=== PATIENT | male | born 1960 | race African-American/Black ===

== ENCOUNTER 2016-12-01 14:24 | Emergency (ER) | payer MEDICAID ==
[~2016-12-01] VITALS: Ht 182.9 cm; Wt 91.0 kg
[~2016-12-01 14:24] MED LIST: DICL75TA5 PO; GABA-531 PO; TRAM50TA3 PO
[2016-12-01] MEDS ORDERED: NORCO (14:45)
[2016-12-01 14:46] VITALS: BP 139/105
[2016-12-01] MEDS ORDERED: TETANUS, DIPHTHERIA, PERTUSSIS VAC/PF 0.5ML (>7YR OLD) IM ONE (17:15)
[2016-12-01] MEDS ORDERED: BACITRACIN ZINC OINT UDPKT TOP ONE (17:15)
[2016-12-01] MEDS ORDERED: KETOROLAC 60MG/2ML VIAL IM ONE (17:30)
== END 2016-12-01 17:53 | disposition home or self-care (01) ==
LOC: ER 14:24
DX: S61.011A Laceration without foreign body of right thumb without damage to nail, initial encounter (principal); F17.200 Nicotine dependence, unspecified, uncomplicated; Z98.890 Other specified postprocedural states; W26.0XXA Contact with knife, initial encounter; Y93.89 Activity, other specified; Y92.89 Other specified places as the place of occurrence of the external cause; Y99.8 Other external cause status
CPT/HCPCS: 90471; 90715; 99283; J1885

== ENCOUNTER 2017-08-07 10:42 | Emergency (ER) | payer MEDICAID, OTHER ==
[~2017-08-07] VITALS: Ht 182.9 cm; Wt 92.0 kg
[~2017-08-07 10:42] MED LIST changes: +NORCO
[2017-08-07 12:30] VITALS: BP 133/89
[2017-08-07 13:35] LABS: CLARITY URINE CLEAR (CLEAR); COLOR URINE YELLOW (YELLOW); GLUCOSE URINE NEGATIVE (NEGATIVE); KETONES URINE NEGATIVE (NEGATIVE); LEUKOCYTE ESTERASE URINE NEGATIVE (NEGATIVE); NITRITE URINE NEGATIVE (NEGATIVE); OCCULT BLOOD URINE NEGATIVE (NEGATIVE); PROTEIN URINE NEGATIVE (NEGATIVE); SPECIFIC GRAVITY URINE 1.015 (1.005-1.030); UROBILINOGEN URINE 0.2 E.U./dL (0.2-1.0)
== END 2017-08-07 14:58 | disposition home or self-care (01) ==
LOC: ER 11:41
DX: I86.1 Scrotal varices (principal); N50.82 Scrotal pain; I10 Essential (primary) hypertension; F17.210 Nicotine dependence, cigarettes, uncomplicated; Z88.0 Allergy status to penicillin
CPT/HCPCS: 76870; 81003; 93976; 99285; Z7610

== ENCOUNTER 2017-12-05 09:14 | Emergency (ER) | payer MEDICAID ==
[~2017-12-05] VITALS: Ht 182.9 cm; Wt 93.0 kg
[2017-12-05] MEDS ORDERED: IBUPROFEN 600MG TABLET PO ONE (12:15)
[2017-12-05] MEDS ORDERED: BACITRACIN ZINC OINT UDPKT TOP ONE (12:15)
[2017-12-05] MEDS ORDERED: LIDOCAINE HCL 1% 20ML VIAL (Pyxis) INJ MC ONE (12:15)
[2017-12-05] MEDS ORDERED: TETANUS, DIPHTHERIA, PERTUSSIS VAC/PF 0.5ML (>7YR OLD) IM ONE (12:15)
[2017-12-05 12:22] VITALS: BP 153/106
== END 2017-12-05 13:06 | disposition home or self-care (01) ==
LOC: ER 09:46
DX: L02.31 Cutaneous abscess of buttock (principal); I10 Essential (primary) hypertension; F17.200 Nicotine dependence, unspecified, uncomplicated; Z88.0 Allergy status to penicillin; Z98.890 Other specified postprocedural states
CPT/HCPCS: 10060; 90471; 90715; 99283; J3490; Z7610

== ENCOUNTER 2019-04-19 12:33 | Emergency (ER) | payer MEDICAID ==
[~2019-04-19 12:33] MED LIST changes: +HYDR25TA PO
== END 2019-04-19 18:19 | disposition left against medical advice (07) ==
LOC: ER 17:20
DX: Z53.21 Procedure and treatment not carried out due to patient leaving prior to being seen by health care provider (principal); Z88.0 Allergy status to penicillin